=== PATIENT | female | born 1960 | race Two or more races ===

== ENCOUNTER 2018-09-19 21:30 | Emergency (ER) | payer MEDICAID ==
[~2018-09-19] VITALS: Ht 177.8 cm; Wt 63.8 kg
[2018-09-19 21:35] VITALS: BP 115/94
[2018-09-19] MEDS ORDERED: LIDOCAINE-MPF 1%, 5ML ONE (21:44)
[2018-09-19] MEDS ORDERED: KETOROLAC 30 MG/1 ML ONE (22:04)
[2018-09-19] MEDS ORDERED: KETOROLAC 30 MG/1 ML IM ONE (22:30)
== END 2018-09-19 22:14 | disposition home or self-care (01) ==
LOC: ED 22:00
DX: L60.0 Ingrowing nail (principal); I50.9 Heart failure, unspecified
CPT/HCPCS: 11730; 96372; 99283; J1885

== ENCOUNTER 2020-08-06 17:51 | Emergency (ER) | payer MEDICAID ==
[~2020-08-06] VITALS: Ht 160 cm; Wt 69.9 kg
[2020-08-06 17:56] VITALS: BP 124/66
[2020-08-06] MEDS ORDERED: CARV-39 PO (18:06)
[2020-08-06] MEDS ORDERED: SACU1TAB4 PO (18:06)
== END 2020-08-06 19:01 | disposition home or self-care (01) ==
LOC: ED 18:21
DX: H00.031 Abscess of right upper eyelid (principal); I50.9 Heart failure, unspecified
CPT/HCPCS: 99283

== ENCOUNTER 2020-08-09 19:16 | Emergency (ER) | payer MEDICAID ==
[~2020-08-09] VITALS: Ht 160 cm; Wt 69.3 kg
[~2020-08-09 19:16] MED LIST: CARV-39 PO; SACU1TAB4 PO
[2020-08-09 19:23] VITALS: BP 161/89
--- NOTE | 2020-08-09 19:58 | NUR ---
Patient/Caregiver given discharge instructions and they have confirmed that they understand the instructions. Patient ambulatory with steady gait.
== END 2020-08-09 19:59 | disposition home or self-care (01) ==
LOC: ED 19:30
DX: H00.011 Hordeolum externum right upper eyelid (principal); I50.9 Heart failure, unspecified
CPT/HCPCS: 99283